=== PATIENT | female | born 2000 | race Caucasian/White ===

== ENCOUNTER 2024-09-25 01:26 | Emergency (ER) | payer BC, SELFPAY ==
[2024-09-25 01:42] VITALS: BP 123/75
[2024-09-25 02:27] LABS: Urine Albumin 1+ (Neg - Trace); Urine Bilirubin Negative (Negative); Urine Character Clear (Clear); Urine Glucose Negative (Negative); Urine Ketone Negative (Negative); Urine Leukocyte 3+ (Negative); Urine Nitrite Negative (Negative); Urine Occult Blood 4+ (Negative); Urine Specific Gravity 1.015 (<1.030); Urine Urobilinogen Negative (Neg - 1+)
[2024-09-25 02:38] LABS: Urine Color Straw
[2024-09-25 02:48] LABS: Urine Bacteria Few (Negative); Urine White Cell 30-40 /HPF (0-5)
[2024-09-25] MEDS: TORADOL 30 MG IM (02:58)
--- NOTE | 2024-09-25 03:19 | ED.GENMED ---
History of Present Illness
General
Chief Complaint: Urinary Symptoms
Source: patient
Exam Limitations: none
Time Seen by Provider: 09/25/24 01:51
Nursing documentation reviewed up to this point in time: agreed with
History of Present Illness
History of Present Illness:
24-year-old female with frequent UTIs presenting to the emergency department today with concerns of urinary frequency urgency and discomfort over the past few hours. Denies any nausea vomiting or fevers. No flank pain.
Review of Systems
Review of Systems
Allergies reviewed?: Yes
All Other Systems: ROS reviewed and negative except as documented in HPI and ROS
Phy Exam
Physical Exam
Physical Exam:
GENERAL: Alert , in no apparent distress
EYE: pupils equal and reactive
NECK: Supple, no significant adenopathy.
ENT: o/p clr, mmm.
CARDIAC: Regular rate and rhythm .
LUNGS: Clear breath sounds bilaterally, no acute respiratory distress, no wheezes/rales/rhonchi
ABDOMEN: Soft, without focal tenderness, no r/g, no cvat
NEUROLOGICAL: Alert and oriented, no focal neuro deficits
SKIN: Warm and dry, skin intact.
MUSCULOSKELETAL: No edema, well perfused.
PSYCH: Normal and appropriate interaction.
Course
Orders/Labs/Results
Orders:
Orders
09/25/24 02:10
Urinalysis Reflex To Culture Urgent
Date Specimen was Collected: 09/25/24
Time Specimen was Collected: 02:06
Urine Microscopic Reflex Cult Urgent
Urine Culture Urgent
SHAHEED Source: U
Specimen Description:
Date Specimen was Collected: 09/25/24
Time Specimen was Collected: 02:06
09/25/24 02:30
Ketorolac [Toradol] 30 mg IM NOW STA
Abnormal Lab Results
09/25/24
02:10
Ur Occult Blood Reflex 4+ A
(Negative)
Leukocyte Esterase Rfl 3+ A
(Negative)
Urine RBC 3-6 A /HPF
(0-2)
Urine WBC (Reflex) 30-40 A /HPF
(0-5)
Urine Bacteria (Reflex) Few A
(Negative)
Urine Albumin (Reflex) 1+ A
(Neg - Trace)
Vital Signs
Initial and Last Documented VS:
Initial Vital Signs
Temp Pulse Resp BP Pulse Ox
98.4 F 86 16 123/75 96
09/25/24 01:42 09/25/24 01:42 09/25/24 01:42 09/25/24 01:42 09/25/24 01:42
Last Documented Vital Signs
Temp Pulse Resp BP Pulse Ox
98.4 F 86 16 123/75 96
09/25/24 01:42 09/25/24 01:42 09/25/24 01:42 09/25/24 01:42 09/25/24 01:42
MDM/Problems Addressed
MDM/Problems Addressed:
24-year-old female presenting with concerns of urinary frequency urgency and discomfort over the past few hours. On arrival vital signs are normal. Urinalysis consistent with UTI. Patient no distress here. No flank pain. Symptoms consistent
with UTI plan for treatment with antibiotic. Return precautions given.
*Critical Care Note
Total Time (30-74mins, 75-104mins- exclusive of procedures): Not Applicable
ED Attending Note
-
Portions of this chart may have been created with voice recognition software.� Occasional wrong word or��sound alike� substitutions may have occurred due to the inherent limitations of voice recognition software.
Discharge Plan
Departure
Patient Disposition: Home (Routine Discharge)
Date of Disposition: 09/25/24
Time of Disposition: 03:20
Patient with high blood pressure during this ER visit?: No
Condition: Good
Covid-19: Not Applicable
Discharge Problem:
UTI (urinary tract infection)
Instructions: Urinary Tract Infection, Adult (DC)
Prescriptions:
New
cephalexin 500 mg capsule
500 mg PO TID 7 Days Qty: 21 0RF
fluconazole [Diflucan] 100 mg tablet
150 mg PO DAILY Qty: 2 0RF
No Action
cephalexin 500 mg capsule
500 mg PO Q6H Qty: 28 0RF
Referrals:
PRIVATE,PHYSICIAN [Family Provider] -
Activity Restrictions/Additional Instructions:
You came to the emergency department today with concerns of what appears to be a urinary tract infection. Please take the prescribed antibiotic. Return for any worsening, new or concerning symptoms.
Interventions
Interventions:
*Risk Screen - Suicide Last Done: 09/25/24 01:42
Discharge Date and Time
Print Language: CHADIAN
[2024-09-25 04:00] VITALS: BP 116/65
== END 2024-09-25 04:04 | disposition home or self-care (01) ==
LOC: EMR 01:26
PROVIDERS: Physician Assistant; EMERGENCY PHYSICIAN Student in an Organized Health Care Education/Training Program
DX: N39.0 Urinary tract infection, site not specified (principal)
CPT/HCPCS: 96372; 99284; 81003; 81015; 87086

== ENCOUNTER 2024-10-10 15:48 | Emergency (ER) | payer BC, SELFPAY ==
[2024-10-10 15:54] VITALS: BP 124/80
[2024-10-10 16:16] LABS: % Basophils 0.3 % (0-2); % Immature Granulocytes 0.3 % (0-0.5); % Lymphocytes 13.3 % (20.5-51.1); % Monocytes 6.6 % (1.7-9.3); % Neutrophils 79.5 % (42.2-75.2); Absolute Lymphocytes 1.9 10^3/uL (1.2-3.4); Absolute Monocytes 0.9 10^3/uL (0.1-0.6); Absolute Neutrophils 11.4 10^3/uL (1.4-6.5); Hematocrit 42.1 % (37.0-47.0); Hemoglobin 14.3 g/dL (12.0-16.0); Mean Corpuscular Hgb 31.7 pg (27.0-31.0); Mean Corpuscular Volume 93.3 fL (81.0-99.0); Mean Platelet Volume 10.2 fL (7.4-10.4); Nucleated Red Blood Cells % 0 %; Platelet Count 304 10^3/uL (130-400); Red Blood Cell Count 4.51 10^6/uL (4.20-5.40); Red Cell Dist. Width 11.9 % (11.5-14.5); White Blood Cell Count 14.3 10^3/uL (4.8-10.8)
[2024-10-10 16:16] LABS: HCG, Urine Qualitative Screen Negative
[2024-10-10 16:20] LABS: Urine Albumin 1+ (Neg - Trace); Urine Bilirubin 1+ (Negative); Urine Character Clear (Clear); Urine Glucose Negative (Negative); Urine Ketone Negative (Negative); Urine Leukocyte 3+ (Negative); Urine Nitrite Positive (Negative); Urine Occult Blood 4+ (Negative); Urine Specific Gravity 1.005 (<1.030); Urine Urobilinogen 1+ (Neg - 1+); Urine pH 6.5 (5.0-9.0)
[2024-10-10 16:22] LABS: Urine Color Orange
[2024-10-10 16:31] LABS: ALT (SGPT) 15 U/L (0-35); AST (SGOT) 20 U/L (14-36); Albumin 4.9 g/dl (3.5-5.0); Alkaline Phosphatase 44 U/L (38-126); Blood Urea Nitrogen 12 mg/dl (7-17); Calcium 10.1 mg/dl (8.4-10.2); Carbon Dioxide 29 mmol/L (22-30); Chloride 105 mmol/L (98-107); Glucose 89 mg/dl (70-99); Potassium 4.1 mmol/L (3.5-5.1); Sodium 140 mmol/L (135-145); Total Bilirubin 0.8 mg/dl (0.2-1.3); Total Protein 7.9 g/dl (6.3-8.2); eGFR > 60.00
[2024-10-10 16:44] LABS: Urine Bacteria Many (Negative); Urine White Cell 50-60 /HPF (0-5)
--- NOTE | 2024-10-10 17:37 | ED.GENMED ---
History of Present Illness
General
Chief Complaint: Urinary Symptoms
Source: patient
Exam Limitations: none
Time Seen by Provider: 10/10/24 17:35
Nursing documentation reviewed up to this point in time: agreed with
History of Present Illness
History of Present Illness:
Pt is a 24 and female with frequent UTIs presents for evaluation. Patient was seen previously here September 25 diagnosed with UTI placed on Keflex. She reports she took about 1 day. She felt fine until this morning when she woke up peeing blood and
has a lot of burning. She does have back pain as well. She denies any nausea vomiting fevers. She she felt that her previous UTI improved on Keflex symptoms were improved until this morning. no prior history of kidney stone.
Review of Systems
Review of Systems
Allergies reviewed?: Yes
All Other Systems: ROS reviewed and negative except as documented in HPI and ROS
Constitutional: Reports no symptoms; Denies fever, fatigue or chills
Respiratory: Reports no symptoms
Cardiac: Reports no symptoms
ABD/GI: Denies abdominal pain, nausea or vomiting
: Reports frequency, flank pain, difficulty voiding, urgency and bleeding
Musculoskeletal: Reports no symptoms
Skin: Reports no symptoms
Neurological: Reports no symptoms
Psychiatric: Reports no symptoms
Phy Exam
General Physical Exam
General Presentation: no apparent distress
General age: appears stated age
General Skin: warm and dry
General Habitus: normal
General Mental: alert
General Hydration: appears well hydrated
Gastrointestinal Exam
Gastrointestinal Exam: normal bowel sounds, non tender and soft
Neurological Exam
Neurological Exam: alert and oriented x3
Musculoskeletal Exam
Musculoskeletal Exam: full ROM and other (No CVA tenderness bilaterally)
Skin Exam
Skin Exam: normal color and warm/dry
Psychiatric Exam
Psychiatric Exam: normal mood/affect
Course
Orders/Labs/Results
Orders:
Orders
10/10/24 15:57
Test Result ONCE
10/10/24 16:07
Complete Blood Count/With Diff Urgent
Comprehensive Metabolic Panel Urgent
10/10/24 16:08
Urinalysis Reflex To Culture Urgent
Date Specimen was Collected: 10/10/24
Time Specimen was Collected: 15:57
Urine Microscopic Reflex Cult Urgent
Urine,Hcg qualitative screen [HCG, Urine Qualitative Screen] Urgent
Date Specimen was Collected: 10/10/24
Time Specimen was Collected: 15:57
Urine Culture Urgent
SHAHEED Source: U
Specimen Description:
Date Specimen was Collected: 10/10/24
Time Specimen was Collected: 15:57
10/10/24 17:44
CT Abd/pelvis W Iv Cont Urgent
Comment:
Reason For Exam: flank pain /uti
0.9% Sodium Chloride 1000 ml [Nss] 1,000 ml IV BOLUS
10/10/24 20:14
Sulfamethox./Trimethoprim Ds [Bactrim Ds 800 mg/160 mg] 1 tablet PO NOW STA
Abnormal Lab Results
10/10/24 10/10/24
16:07 16:08
WBC 14.3 H 10^3/uL
(4.8-10.8)
MCH 31.7 H pg
(27.0-31.0)
Absolute Neuts (auto) 11.4 H 10^3/uL
(1.4-6.5)
Absolute Monos (auto) 0.9 H 10^3/uL
(0.1-0.6)
Neutrophils % 79.5 H %
(42.2-75.2)
Lymphocytes % 13.3 L %
(20.5-51.1)
Ur Occult Blood Reflex 4+ A
(Negative)
Urine Nitrite (Reflex) Positive A
(Negative)
Urine Bilirubin 1+ A
(Negative)
Leukocyte Esterase Rfl 3+ A
(Negative)
Urine RBC 7-10 A /HPF
(0-2)
Urine WBC (Reflex) 50-60 A /HPF
(0-5)
Urine Bacteria (Reflex) Many A
(Negative)
Urine Albumin (Reflex) 1+ A
(Neg - Trace)
10/10/24 16:07
10/10/24 16:07
Vital Signs
Initial and Last Documented VS:
Initial Vital Signs
Temp Pulse Resp BP Pulse Ox
98.9 F 95 18 124/80 98
10/10/24 15:54 10/10/24 15:54 10/10/24 15:54 10/10/24 15:54 10/10/24 15:54
Last Documented Vital Signs
Temp Pulse Resp BP Pulse Ox
98.9 F 95 18 119/74 99
10/10/24 15:54 10/10/24 15:54 10/10/24 15:54 10/10/24 18:00 10/10/24 18:30
MDM/Problems Addressed
Differential Diagnosis Includes:
Not limited to UTI/cystitis, pyelonephritis
MDM/Problems Addressed:
Symptoms are consistent with cystitis. CAT scan shows urinary bladder wall thickening most suspicious for cystitis no clear evidence for pyelonephritis. Patient is in no acute distress white count is minimally elevated she has nontoxic-appearing,
I did review micro from previous culture however culture reads mixed camille, will switch antibiotic to Bactrim. Discussed close outpatient follow with PCP will refer to family practice clinic. Discussed to return if any worsening of symptoms.
*Radiology
Radiology exam reviewed: radiology read reviewed
*Critical Care Note
Total Time (30-74mins, 75-104mins- exclusive of procedures): Not Applicable
Data Reviewed
Review of Other/Old Records Reveals: Labs and Other (Previous ER chart)
ED Attending Note
-
Portions of this chart may have been created with voice recognition software.� Occasional wrong word or��sound alike� substitutions may have occurred due to the inherent limitations of voice recognition software.
Discharge Plan
Departure
Patient Disposition: Home (Routine Discharge)
Date of Disposition: 10/10/24
Time of Disposition: 20:19
Patient with high blood pressure during this ER visit?: No
Covid-19: Not Applicable
Discharge Problem:
UTI (urinary tract infection)
Instructions: Urinary Tract Infection, Adult (DC)
Prescriptions:
New
sulfamethoxazole-trimethoprim [Bactrim DS] 800-160 mg tablet
1 tab PO BID Qty: 14 0RF
No Action
cephalexin 500 mg capsule
500 mg PO Q6H Qty: 28 0RF
cephalexin 500 mg capsule
500 mg PO TID 7 Days Qty: 21 0RF
fluconazole [Diflucan] 100 mg tablet
150 mg PO DAILY Qty: 2 0RF
Referrals:
OFEL[facility] PAINTING [Other]
[facility] [Outside]
Activity Restrictions/Additional Instructions:
STart BACTRIM twice a day for the next week .
Stay well-hydrated. Follow-up closely with family practice clinic in the next several days.
return if any worsening of symptoms including increased abdominal pain nausea vomiting fever chills.
Interventions
Interventions:
*Risk Screen - Suicide Last Done: 10/10/24 15:54
*General Assessment Last Done: 10/10/24 15:54
*Neglect/Abuse Screening Last Done: 10/10/24 15:54
*ED- Fall Risk Assessment Last Done: 10/10/24 15:54
*ED COVID-19 Vaccine History Last Done: 10/10/24 15:54
ED-Female Genitourinary Assessment Last Done: 10/10/24 17:04
Discharge Date and Time
Print Language: MAORI
[2024-10-10] MEDS: NSS 1000 IV (17:50)
[2024-10-10 17:52] VITALS: BP 131/99
[2024-10-10 18:00] VITALS: BP 119/74
[2024-10-10] MEDS: BACTRIM DS 800 MG/160 MG 1 TABLET PO (20:20)
== END 2024-10-10 20:40 | disposition home or self-care (01) ==
LOC: EMR 15:48
PROVIDERS: EMERGENCY PHYSICIAN Student in an Organized Health Care Education/Training Program
DX: N39.0 Urinary tract infection, site not specified (principal); M54.9 Dorsalgia, unspecified
CPT/HCPCS: 99284; 96360; 74177; 80053; 81003; 81015; 81025; 85025; 87086; Q9967